=== PATIENT | female | born 1970 | race Asian ===

== ENCOUNTER 2016-05-30 13:39 | Emergency (ER) | payer OTHER ==
[2016-05-30] MEDS ORDERED: SODIUM CHLORIDE 0.9% 500 ML IV ONE (14:17)
[2016-05-30] MEDS ORDERED: ED DILTIAZEM DRIP 125 ML IV ONE (14:17)
[2016-05-30] MEDS ORDERED: ONDANSETRON 4 MG VIAL ONE (14:43)
== END 2016-05-30 14:42 | disposition other institution (70) ==
LOC: ER 13:39
DX: I60.2 Nontraumatic subarachnoid hemorrhage from anterior communicating artery (principal)
CPT/HCPCS: 36415; 70450; 71010; 80053; 82947; 85025; 85610; 93005; 96374; 99291; J2405; J7040